=== PATIENT | female | born 1980 | race African-American/Black ===

== ENCOUNTER 2017-09-10 20:59 | Emergency (ER) | payer SELFPAY ==
[~2017-09-10] VITALS: Ht 175.3 cm; Wt 64.4 kg
[~2017-09-10 20:59] MED LIST: ATARAX25 MG ORAL; MEDROL DOSEPAK4 MG ORAL; NKM
[2017-09-10 21:20] VITALS: BP 148/84
[2017-09-10 22:10] VITALS: BP 136/84
[2017-09-10] MEDS ORDERED: ACETAMINOPHEN-1 EAC1 ORAL (22:18)
[2017-09-10 22:24] VITALS: BP 148/84
--- NOTE | 2017-09-11 01:00 | Emergency Room Report ---
History of Present Illness General Chief Complaint: Multiple Trauma/Fall Source: Patient Present Illness HPI 37-year-old female presents ED for evaluation. Patient states she had a mechanical trip and fall today. He fell forward. Complaining of pain to her elbows and knees. Denies hitting her head or LOC. Pain is throbbing, 7 out of 10, nonradiating. Denies any other injuries. No other aggravating or relieving factors. Denies any other associated symptoms Allergies: Coded Allergies: No Known Allergies (Unverified , 04/21/14) Patient History Past Medical History: none Past Surgical History: none Pertinent Family History: none Social History: Denies: smoking, alcohol use, drug use Last Menstrual Period: 08/31/17 Now: No Immunizations: UTD Reviewed Nursing Documentation: PMH: Agreed, PSxH: Agreed Nursing Documentation-PMH Past Medical History: No Stated History Review of Systems All Other Systems: negative except mentioned in HPI Physical Exam Vital Signs Date Time Temp Pulse Resp B/P (MAP) Pulse Ox O2 Delivery O2 Flow Rate FiO2 09/10/17 21:12 99.3 116 17 148/84 98 Room Air 99.3 Sp02 EP Interpretation: reviewed, normal General Appearance: no apparent distress, alert, GCS 15, non-toxic Head: normocephalic, atraumatic Eyes: bilateral eye normal inspection, bilateral eye PERRL ENT: hearing grossly normal, normal pharynx, no angioedema, normal voice Neck: full range of motion, supple/symm/no masses Respiratory: chest non-tender, lungs clear, normal breath sounds, speaking full sentences Cardiovascular #1: regular rate, rhythm, no edema Cardiovascular #2: 2+ carotid (R), 2+ carotid (L), 2+ radial (R), 2+ radial (L) , 2+ dorsalis pedis (R), 2+ dorsalis pedis (L) Gastrointestinal: normal bowel sounds, non tender, soft, non-distended, no guarding, no rebound Rectal: deferred Genitourinary: normal inspection, no CVA tenderness Musculoskeletal: back normal, gait/station normal, normal range of motion, tender - bilateral elbow, bilateral knee Neurologic: alert, oriented x3, responsive, motor strength/tone normal, sensory intact, speech normal Psychiatric: judgement/insight normal, memory normal, mood/affect normal, no suicidal/homicidal ideation Reflexes: 3+ bicep (R), 3+ bicep (L), 3+ tricep (R), 3+ tricep (L), 3+ knee (R) , 3+ knee (L) Skin: normal color, no rash, warm/dry, well hydrated Lymphatic: no adenopathy Medical Decision Making Diagnostic Impression: Primary Impression: Elbow contusion Qualified Codes: S50.00XA - Contusion of unspecified elbow, initial encounter Additional Impressions: Multiple injuries due to trauma Knee contusion Qualified Codes: S80.00XA - Contusion of unspecified knee, initial encounter ER Course Hospital Course 37-year-old F presents to ED complaining of bilateral elbow and knee pain s/p trip and fall Differential diagnoses include: Fracture, dislocation, sprain, contusion Clinical course Patient placed on stretcher. After initial history and physical, I ordered xrays of bilateral knees and elbows patient declined pain meds Xrays prelim read shows no acute fracture/dislocation. Discussed findings with patient. Patient is safe for discharge Diagnosis - multiple injuries due to fall, elbow contusion, knee contusion Stable and discharged to home with prescription for Tylenol. apply ice, keep elevated. weight bear as tolerated. Followup with PMD. Return to ED if symptoms recur or worsen Other X-Ray Diagnostic Results Other X-Ray Diagnostic Results #1: X-Ray ordered: R elbow # of Views/Limited Vs Complete: 3 View Indication: Pain EP Interpretation: Yes Interpretation: no dislocation, no soft tissue swelling, no fractures Impression: No acute disease Electronically Signed by: Electronically signed by Jersey Garcia MD Other X-Ray Diagnostic Results #2: X-Ray ordered: Left elbow # of Views/Limited Vs Complete: 3 View Indication: Pain EP Interpretation: Yes Interpretation: no dislocation, no soft tissue swelling, no fractures Impression: No acute disease Electronically Signed by: Electronically signed by Jersey Garcia MD Other X-Ray Diagnostic Results #3: X-Ray ordered: Right knee # of Views/Limited Vs Complete: 3 View Indication: Pain EP Interpretation: Yes Interpretation: no dislocation, no soft tissue swelling, no fractures Impression: No acute disease Electronically Signed by: Electronically signed by Jersey Garcia MD Other X-Ray Diagnostic Results #4: X-Ray ordered: Left knee # of Views/Limited Vs Complete: 3 View Indication: Pain EP Interpretation: Yes Interpretation: no dislocation, no soft tissue swelling, no fractures Impression: No acute disease Electronically Signed by: Electronically signed by Jersey Garcia MD Last Vital Signs Date Time Temp Pulse Resp B/P (MAP) Pulse Ox O2 Delivery O2 Flow Rate FiO2 09/10/17 22:24 99.1 116 17 148/84 98 Room Air 99.1 Status: improved Disposition: HOME, SELF-CARE Condition: Stable Scripts Acetaminophen With Codeine (T#3) (TYLENOL #3 TAB*) Y Tab 1 TAB ORAL Q8H Y for For Pain, #20 TAB Prov: JERSEY GARCIA M.D. 09/10/17 Patient Instructions: Elbow Contusion, [id number] JERSEY GARCIA M.D. Sep 11, 2017 01:00
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
--- NOTE | 2017-09-11 10:06 | Diagnostic Imaging Report ---
Indication: Right knee pain Technique: XRAY Knee 3v R Comparison: None Findings: There is no acute fracture or dislocation. No joint effusion is identified. Bone mineralization is normal. Soft tissues are grossly unremarkable. Impression: No acute osseous abnormality.
--- NOTE | 2017-09-11 10:07 | Diagnostic Imaging Report ---
Indication: Right elbow pain Technique: XRAY Elbow Min 3v R Comparison: None Findings: There is no acute fracture or dislocation. Bone mineralization is normal. Soft tissues are grossly unremarkable. There is no obvious joint effusion. Impression: No acute osseous abnormality.
--- NOTE | 2017-09-11 10:07 | Diagnostic Imaging Report ---
Indication: Left elbow pain Technique: XRAY Elbow Min 3v L Comparison: None Findings: There is no acute fracture or dislocation. No obvious elbow joint effusion is identified. Bone mineralization is normal. Impression: No acute osseous abnormality.
== END 2017-09-10 22:25 | disposition home or self-care (01) ==
LOC: EMR 21:49
DX: S50.00XA Contusion of unspecified elbow, initial encounter (principal); S80.00XA Contusion of unspecified knee, initial encounter; W01.0XXA Fall on same level from slipping, tripping and stumbling without subsequent striking against object, initial encounter; Y92.9 Unspecified place or not applicable
CPT/HCPCS: 99284

== ENCOUNTER 2018-09-18 14:54 | Emergency (ER) | payer SELFPAY ==
[~2018-09-18] VITALS: Ht 172.7 cm; Wt 62.6 kg
[~2018-09-18 14:54] MED LIST changes: +ACETAMINOPHEN-1 EAC1 ORAL
[2018-09-18 15:05] VITALS: BP 141/89
--- NOTE | 2018-09-18 15:42 | NUR ---
ED Nurse Note: PT. AAOX4. AMBULATORY.CAME IN TO ER DUE TO CHRONIC NECK AND SHOULDER PAIN.
[2018-09-18] MEDS ORDERED: Ketorolac 30mg Inj IM ONE (15:45)
[2018-09-18] MEDS ORDERED: Methocarbamol 500mg tab ORAL ONE (15:45)
[2018-09-18] MEDS ORDERED: TYLENOL EXTRA500 MG ORAL (15:50)
[2018-09-18] MEDS ORDERED: LIDOCAINE700 M1 TP (15:50)
[2018-09-18] MEDS ORDERED: ROBAXIN500 MG PO (15:50)
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
[2018-09-18 15:56] VITALS: BP 141/89
--- NOTE | 2018-09-18 15:56 | NUR ---
ER DISCHARGE NOTE: is cleared to be discharged per ERMD, pt is aox4, on room air, with stable vital signs. pt was given dc and prescription instructions, pt was able to verbalize understanding, pt id band removed. pt is able to ambulate with steady gait. pt took all belongings.
== END 2018-09-18 15:56 | disposition home or self-care (01) ==
LOC: EMR 15:36
DX: S16.1XXA Strain of muscle, fascia and tendon at neck level, initial encounter (principal); V43.52XA Car driver injured in collision with other type car in traffic accident, initial encounter; Y92.481 Parking lot as the place of occurrence of the external cause
CPT/HCPCS: 96372; 99283; J1885